=== PATIENT | female | born 1945 | race Caucasian/White ===

== ENCOUNTER 2019-12-31 15:20 | Observation (INO) | payer OTHER, BC ==
[~2019-12-31 15:20] MED LIST: sitaGLIPtin PHOSPHATE 50 MG TABLET PO SCH
[2019-12-31] MEDS ORDERED: DIPHTH,PERTUSS(ACELL),TET 0.5 ML DISP.SYRIN IM ONE ×2 (15:29→15:58)
--- NOTE | 2019-12-31 15:46 | PDOC ---
History of Present Illness - General History Source: Patient Exam Limitations: No Limitations - History of Present Illness Initial Comments: 12/31/19 15:41 74y F with PMH of Afib (warfarin, ppm), HTN, CHF presenting to ED with complaints of fall. Pt was outside had a witnessed mechanical fall and hit her face on a stone step. Pt did not lose consciousness. She has a laceration above the L eyebrow. Denies numbness/tingling, changes in vision, weakness, neck pain , ataxia, nosebleeds, headache. PMD: Parker PMH: see hpi Meds: see med rec Allergies: nkda <Lakeisha Shipley - Last Filed: 12/31/19 19:13> <Lilia Bee - Last Filed: 01/04/20 07:54> - General Chief Complaint: Injury Stated Complaint: FELL Time Seen by Provider: 12/31/19 15:29 Past History <Lakeisha Shipley - Last Filed: 12/31/19 19:13> <Lilia Bee - Last Filed: 01/04/20 07:54> - Past Medical History Allergies/Adverse Reactions: Allergies Allergy/AdvReac Type Severity Reaction Status Date / Time No Known Allergies Allergy Verified 12/31/19 15:27 Home Medications: Ambulatory Orders Aspirin [Aspirin EC] 81 mg PO DAILY 12/31/19 Digoxin [Lanoxin] 125 mcg PO DAILY 12/31/19 Furosemide [Lasix] 40 mg PO DAILY 12/31/19 Isosorbide Mononitrate [Imdur -] 60 mg PO DAILY 12/31/19 Metoprolol Tartrate [Lopressor] 100 mg PO DAILY 12/31/19 Ramipril 5 mg PO DAILY 12/31/19 Simvastatin 20 mg PO HS 12/31/19 Sitagliptin Phos/Metformin HCl [Janumet 50-500 mg Tablet] 1 each PO DAILY Warfarin Na [Coumadin -] 5 mg PO HS 12/31/19 Review of Systems - Review of Systems Constitutional: No: Symptoms Reported HEENTM: No: Symptoms Reported Respiratory: No: Symptoms reported Cardiac (ROS): No: Symptoms Reported ABD/GI: No: Symptoms Reported : No: Symptoms Reported Musculoskeletal: No: Symptoms Reported Integumentary: Yes: See HPI Neurological: No: Symptoms reported <Lakeisha Shipley - Last Filed: 12/31/19 19:13> *Physical Exam - Physical Exam General Appearance: Yes: Nourished, Appropriately Dressed. No: Apparent Distress HEENT: positive: EOMI, NELLIE, TMs Normal, Pharynx Normal Neck: positive: Trachea midline, Supple. negative: Tender midline Respiratory/Chest: positive: Lungs Clear, Normal Breath Sounds. negative: Crackles, Rales, Rhonchi, Stridor, Wheezing Cardiovascular: positive: Regular Rhythm, Regular Rate, S1, S2. negative: Edema , JVD, Murmur Gastrointestinal/Abdominal: positive: Normal Bowel Sounds, Soft Musculoskeletal: negative: CVA Tenderness, Vertebral Tenderness Extremity: positive: Normal Capillary Refill. negative: Pedal Edema, Swelling Integumentary: positive: Normal Color, Dry, Warm, Other (3cm laceration along curvature of frontal bone along L orbit. Abrasion on nasal bridge) Neurologic: positive: crayon sorting machine feeder II-XII NML intact, Fully Oriented, Alert, Normal Mood/ Affect, Normal Response, Motor Strength 5/5 <Lakeisha Shipley - Last Filed: 12/31/19 19:13> - Vital Signs Last Vital Signs Temp Pulse Resp BP Pulse Ox 97.4 F L 70 16 170/93 97 12/31/19 15:25 12/31/19 15:25 12/31/19 15:25 12/31/19 15:25 12/31/19 15:25 <Lilia Bee - Last Filed: 01/04/20 07:54> Procedures - Laceration/Wound Repair Left Upper Face Wound Length: 2.6 to 5.0 cm Wound Explored: clean Wound's Depth, Shape: superficial Irrigated w/ Saline: Yes Betadine Prep: No Anesthesia: 1% Lidocaine Amount of Anesthetic (ccs): 2 Wound Debrided: minimal Wound Repaired With: Sutures Suture Size/Type: 6:0 Number of Sutures: 9 Layer Closure: No <Lilia Bee - Last Filed: 01/04/20 07:54> ED Treatment Course - LABORATORY CBC & Chemistry Diagram: 12/31/19 16:10 12/31/19 17:45 - RADIOLOGY Radiology Studies Ordered: Category Date Time Status CERVICAL SPINE CT W/O CONTR [CT] Stat CT Scan 12/31/19 15:[address] W/O CONTRAST [CT] Stat CT Scan 12/31/19 15:[address] WITHOUT CONTRAST [CT] Stat CT Scan 12/31/19 15:30 Ordered <Lakeisha Shipley - Last Filed: 12/31/19 19:13> - LABORATORY CBC & Chemistry Diagram: 01/01/20 07:45 01/01/20 07:45 - ADDITIONAL ORDERS Additional order review: Laboratory Results 12/31/19 16:10 PT with INR 23.6 H INR 2.14 H 12/31/19 16:10 RBC 4.57 MCV 94.6 MCHC 33.2 RDW 13.8 MPV 9.6 Neutrophils % 82.3 Lymphocytes % 10.1 Monocytes % 4.7 Eosinophils % 2.5 Basophils % 0.4 - Medications Given in the ED: ED Medications Discontinued Medications Generic Name Dose Route Start Last Admin Trade Name Freq PRN Reason Stop Dose Admin Diphtheria/Tetanus/Acell Pertussis 0.5 ml 12/31/19 15:29 12/31/19 16:00 Boostrix - IM 12/31/19 15:30 0.5 ml .ONCE ONE Administration <Lilia Bee - Last Filed: 01/04/20 07:54> Medical Decision Making - Medical Decision Making 12/31/19 15:46 74y F on Warfarin presenting for facial laceration after witnessed mechanical fall without syncope. vitals wnl. will obtain ct of head, facial bones and cspine. boostrix. laceration repair. 12/31/19 19:[address] negative for bleed. hyperdensities seen in frontal lobes concerning for bleed since that is where pt hit her head. called Dr. Anderson, stated it is artifact. pt does not have any neurological deficits. INR therapeutic. will hold warfarin. laceration repaired by medical student Alphonso and Dr. Bee. given head injury, use of warfarin, will admit pt for obs for repeat CT in 12h (0330) accepted by hospitalist. <Lakeisha Shipley - Last Filed: 12/31/19 19:13> Discharge - Discharge Information Problems reviewed: Yes - Admission Yes <Lakeisha Shipley - Last Filed: 12/31/19 19:13> - Admission Yes <Lilia Bee - Last Filed: 01/04/20 07:54> - Discharge Information Clinical Impression/Diagnosis: Fall Qualifiers: Encounter type: initial encounter Qualified Code(s): W19.XXXA - Unspecified fall, initial encounter Laceration of eyebrow, left Qualifiers: Encounter type: initial encounter Qualified Code(s): S01.112A - Laceration without foreign body of left eyelid and periocular area, initial encounter Contusion of face Qualifiers: Encounter type: initial encounter Qualified Code(s): S00.83XA - Contusion of other part of head, initial encounter Condition: Improved Disposition: HOME
--- NOTE | 2019-12-31 15:57 | PDOC ---
Attending Attestation - Resident Resident Name: ViolettaLakeisha - ED Attending Attestation I have performed the following: I have examined & evaluated the patient, The case was reviewed & discussed with the resident, I agree w/resident's findings & plan - HPI HPI: 12/31/19 15:53 74y F with PMH of Afib (warfarin, ppm), HTN, CHF presenting to ED with complaints of mechanical fall. Pt was outside had a witnessed mechanical fall and hit her face on a stone step. No LOC.. She has a laceration above the L eyebrow, +bleeding, and bruising around left eye/cheek. Denies numbness/tingling , changes in vision, hearing, weakness, neck pain, ataxia, nosebleeds, headache. no cp or sob or syncope. last tdap unknown. - Physicial Exam PE: 12/31/19 15:53 Physical exam: General: GCS 15 - NAD HEENT: PERRL, EOMI. Airway intact. +left upper eyebrow 3cm curvilinear and superficial. +left periorbital/cheek ecchymosis, nontender. No e/o ocular involvement, no proptosis no entrapment. Dentition intact. No e/o septal hematoma, nasal bridge stable. +small abrasion to the bridge of nose. Neck: neck supple, no midline C spine tenderness or deformity, ROM intact. No anterior mass or crepitus, trachea midline. right Tm clear, no hemotympanum; congenital abscence of left ear. Resp: Lungs clear bilaterally Chest: no clavicle or chest wall tenderness or crepitus CVS: irreg irreg, 2+ pulses throughout. Abdomen: Abdomen soft, nontender, nondistended. Back: Back nontender, no midline spinal tenderness along cervical/thoracic/ lumbar spine, FROM, no stepoffs. MSK: Pelvis stable, Extremities symmetric, no focal areas of tenderness or deformities, proximal and distally; no pain on axial loading. FROM in all extrem. Neuro: Alert, oriented appropriately. CN II-XII grossly symmetric and intact. no focal neuro deficits. Sensation and strength intact throughout. Gait normal/ stable. Skin: intact, normal color and well perfused. No seatbelt signs at neck, chest or abdomen. - Medical Decision Making 12/31/19 15:56 Vital Signs Temp Pulse Resp BP Pulse Ox 97.4 F L 70 16 170/93 97 12/31/19 15:25 12/31/19 15:25 12/31/19 15:25 12/31/19 15:25 12/31/19 15:25 Trauma ddx: ICH, SDH/ EDH, C spine injury/strain, extremity sprain/fracture, pelvis fracture. MSK contusion, msk spasms. Rib fractures. Clinically doubt Intra abdominal and thoracic injuries/bleed CT head/facial/cervical spine indicated to eval for f/x bleed No evidence of skull fracture, intracranial bleed, dental trauma, cervical, thoracic, or vertebral fracture or subluxation, no suspicion of thoracic, abdominal, pelvic or extremity injury by exam. CT facial without any fractures, no C-spine fracture is noted, multilevel degenerative disc disease is noted CT head prelim neg for acute pathology, atrophic changes noted. had discussed with radiologist, Dr Anderson regarding frontal lobe hyperdensity, but more likely artifact. however, requires repeat CT head in 12-24 hours for risk of delayed bleeding given Coumadin use and head trauma. tdap updated lac repair performed, see note, with 6-0 sutures - copious irrigation with NaCL 1L- 9 sutures placed. wound care instructions, cleaning and minimize infection risk. topical bacitracin, bandaid removal in 5-7 days. admit to hospitalist service for repeat head CT, observation, monitoring s.o to LIN Rawls, admitting to Dr pizano hospitalist service. 12/31/19 17:31 12/31/19 18:25
[2019-12-31 16:26] LABS: BASO % 0.4 % (0-2.0); EOS % 2.5 % (0-4.5); HEMATOCRIT 43.2 % (32.4-45.2); HEMOGLOBIN 14.3 GM/dl (10.7-15.3); LYMPH % 10.1 % (8-40); MCH 31.4 pg (25.7-33.7); MCHC 33.2 g/dl (32.0-36.0); MEAN CELL VOLUME 94.6 fl (80-96); MEAN PLT VOLUME 9.6 fl (7.5-11.1); MONO % 4.7 % (3.8-10.2); NEUT % 82.3 % (42.8-82.8); PLATELET COUNT 183 K/MM3 (134-434); RBC 4.57 M/mm3 (3.60-5.2); RDW 13.8 % (11.6-15.6); WHITE BLOOD COUNT 11.3 K/mm3 (4.0-10.8)
[2019-12-31 16:37] LABS: INR 2.14 (0.82-1.09); PROTHROMBIN TIME (PATIENT) 23.6 SEC (10.2-13.0)
[2019-12-31 18:15] LABS: CALCIUM 9.1 mg/dl (8.5-10); CREATININE 0.8 mg/dl (0.55-1.3); POTASSIUM 4.3 mmol/L (3.5-5.1)
--- NOTE | 2019-12-31 20:58 | HP ---
CHIEF COMPLAINT: PCP: Dr. Canales HISTORY OF PRESENT ILLNESS: 74 year-old female with a PMH significant for HTN, HLD, CHF, afib on coumadin, and Type II NIDDM, who presented to the ED following a witnessed mechanical fall. Patient hit her face on a stone step. No LOC. Suffered a laceration above the left eyebrow. ER course was notable for: (1) BP 170/93 (2) Sutured laceration above left eyebrow Recent Travel: No PAST MEDICAL HISTORY: Hypertension Hyperlipidemia CHF Atrial fibrillation Type II NIDDM PAST SURGICAL HISTORY: c-sections x 3 Cholecystectomy PPM/AICD Valve replacement Social History: retired Smoking: no Alcohol:no Drugs: no Family history: non-contributory Allergies No Known Allergies Allergy (Verified 12/31/19 15:27) HOME MEDICATIONS: Home Medications Medication Instructions Recorded Aspirin [Aspirin EC] 81 mg PO DAILY 12/31/19 Digoxin [Lanoxin] 125 mcg PO DAILY 12/31/19 Furosemide [Lasix] 40 mg PO DAILY 12/31/19 Isosorbide Mononitrate [Imdur -] 60 mg PO DAILY 12/31/19 Metoprolol Tartrate [Lopressor] 100 mg PO DAILY 12/31/19 Ramipril 5 mg PO DAILY 12/31/19 Simvastatin 20 mg PO HS 12/31/19 Sitagliptin Phos/Metformin HCl 1 each PO DAILY 12/31/19 [Janumet 50-500 mg Tablet] Warfarin Na [Coumadin] 5 mg PO HS 12/31/19 REVIEW OF SYSTEMS CONSTITUTIONAL: Absent: fever, chills, diaphoresis, generalized weakness, malaise, loss of appetite, weight change HEENT: Absent: rhinorrhea, nasal congestion, throat pain, throat swelling, difficulty swallowing, mouth swelling, ear pain, eye pain, visual changes CARDIOVASCULAR: Absent: chest pain, syncope, palpitations, irregular heart rate, lightheadedness , peripheral edema RESPIRATORY: Absent: cough, shortness of breath, dyspnea with exertion, orthopnea, wheezing, stridor, hemoptysis GASTROINTESTINAL: Absent: abdominal pain, abdominal distension, nausea, vomiting, diarrhea, constipation, melena, hematochezia GENITOURINARY: Absent: dysuria, frequency, urgency, hesitancy, hematuria, flank pain, genital pain MUSCULOSKELETAL: Absent: myalgia, arthralgia, joint swelling, back pain, neck pain SKIN: mild pain, laceration over eye Absent: rash, itching, pallor HEMATOLOGIC/IMMUNOLOGIC: Absent: easy bleeding, easy bruising, lymphadenopathy, frequent infections ENDOCRINE: Absent: unexplained weight gain, unexplained weight loss, heat intolerance, cold intolerance NEUROLOGIC: Absent: headache, focal weakness or paresthesias, dizziness, unsteady gait, seizure, mental status changes, bladder or bowel incontinence PSYCHIATRIC: Absent: anxiety, depression, suicidal or homicidal ideation, hallucinations. PHYSICAL EXAMINATION Vital Signs - 24 hr 12/31/19 12/31/19 15:25 18:30 Temperature 97.4 F L Pulse Rate 70 Pulse Rate [ 76 Right Radial] Respiratory 16 16 Rate Blood Pressure 170/93 Blood Pressure 170/87 [Right Arm] O2 Sat by Pulse 97 94 L Oximetry (%) GENERAL: Awake, alert, and fully oriented, in no acute distress. HEAD: Laceration above left eyebrow, sutured, no bleeding EYES: Pupils equal, round and reactive to light, extraocular movements intact, sclera anicteric, conjunctiva clear. Left periorbital ecchymosis LUNGS: Breath sounds equal, clear to auscultation bilaterally. No wheezes, and no crackles. No accessory muscle use. HEART: Regular rate and rhythm, normal S1 and S2 ABDOMEN: Soft, nontender, not distended UPPER EXTREMITIES: 2+ pulses, warm, well-perfused. No cyanosis. No clubbing. No peripheral edema. LOWER EXTREMITIES: 2+ pulses, warm, well-perfused. No calf tenderness. No peripheral edema. NEUROLOGICAL: Cranial nerves II-XII intact. Normal speech. Laboratory Results - last 24 hr 12/31/19 12/31/19 12/31/19 16:10 16:10 17:45 WBC 11.3 H RBC 4.57 Hgb 14.3 Hct 43.2 MCV 94.6 MCH 31.4 MCHC 33.2 RDW 13.8 Plt Count 183 MPV 9.6 Absolute Neuts (auto) 9.4 Neutrophils % 82.3 Lymphocytes % 10.1 Monocytes % 4.7 Eosinophils % 2.5 Basophils % 0.4 PT with INR 23.6 H INR 2.14 H Sodium 135 L Potassium 4.3 Chloride 104 Carbon Dioxide 25 Anion Gap 6 L BUN 19.0 H Creatinine 0.8 Est GFR (CKD-EPI)AfAm 83.59 Est GFR (CKD-EPI)NonAf 72.12 Random Glucose 120 H Calcium 9.1 ASSESSMENT/PLAN: 74 year-old female with a PMH significant for HTN, HLD, CHF, afib on coumadin, and Type II NIDDM, who presented to the ED following a witnessed mechanical fall. Patient hit her face on a stone step. No LOC. Suffered a laceration above the left eyebrow. Witnessed mechanical fall Facial trauma --initial CT head negative for acute process, repeat in 12 hours --CT spine, facial bones negative for fracture Atrial fibrillation --hold warfarin pending repeat head CT --INR therapeutic 2.14 Hypertension --initial BP elevated, has stabilized, continue metoprolol, ramipril Hyperlipidemia --copntinue simvastatin CHF, NOS --continue digoxin, lasix, isosorbide Left eyebrow laceration --no active bleeding, no exudate --monitor for s/s of infection FEN Fluids: PO intake adequate Electrolytes: replete as indicated Nutrition: Low sodium, diabetic DVT prophylaxis: INR is therapeutic, hold a/c pending second head CT Dispo: continues to require inpatient care. Full code. Visit type - Emergency Visit Emergency Visit: Yes ED Registration Date: 12/31/19 Care time: The patient presented to the Emergency Department on the above date and was hospitalized for further evaluation of their emergent condition. - New Patient This patient is new to me today: Yes Date on this admission: 01/15/20 - Critical Care Critical Care patient: No
[2019-12-31 21:33] VITALS: BMI 60.5
[2019-12-31] MEDS: INSULIN SLIDING SCALE (NOVOLOG) 1 VIAL SQ SCH (21:37)
[2019-12-31] MEDS ORDERED: ATORVASTATIN CA 10 MG TABLET (FP) PO SCH (22:00)
[2020-01-01 06:30] VITALS: BP 147/63; PULSE 68; TEMP 98.1
[2020-01-01] MEDS: INSULIN SLIDING SCALE (NOVOLOG) 1 VIAL SQ SCH ×2 (06:53→11:00)
[2020-01-01] MEDS ORDERED: metFORMIN HCL 500 MG TABLET (FP) PO SCH (07:00)
[2020-01-01 08:47] LABS: ALBUMIN 3.6 g/dl (3.4-5.0); BILIRUBIN,TOTAL 1.2 mg/dl (0.2-1); CALCIUM 9.2 mg/dl (8.5-10); CREATININE 0.7 mg/dl (0.55-1.3); INR 2.21 (0.82-1.09); MAGNESIUM 1.5 mg/dL (1.8-2.4); POTASSIUM 3.8 mmol/L (3.5-5.1); PROTHROMBIN TIME (PATIENT) 24.4 SEC (10.2-13.0); TOT PROT 6.1 g/dl (6.4-8.2)
[2020-01-01 09:00] LABS: BASO % 0.4 % (0-2.0); EOS % 3.4 % (0-4.5); HEMATOCRIT 39.3 % (32.4-45.2); HEMOGLOBIN 12.9 GM/dl (10.7-15.3); LYMPH % 13.3 % (8-40); MCH 30.9 pg (25.7-33.7); MCHC 32.8 g/dl (32.0-36.0); MEAN CELL VOLUME 94.2 fl (80-96); MEAN PLT VOLUME 10.4 fl (7.5-11.1); MONO % 5.5 % (3.8-10.2); NEUT % 77.4 % (42.8-82.8); PLATELET COUNT 160 K/MM3 (134-434); RBC 4.18 M/mm3 (3.60-5.2); RDW 13.6 % (11.6-15.6); WHITE BLOOD COUNT 8.7 K/mm3 (4.0-10.8)
[2020-01-01] MEDS ORDERED: MAGNESIUM SULF 50% (8.12 MEQ/2 ML-1 GM VIAL) IVPB ONE (09:57)
--- NOTE | 2020-01-01 09:59 | DS ---
Physical Exam: SUBJECTIVE: Patient seen and examined OBJECTIVE: Vital Signs Period Temp Pulse Resp BP Sys/Mays Pulse Ox Last 24 Hr 97.4 F-98.1 F 68-76 16-18 142-170/63-93 94-97 PHYSICAL EXAM GENERAL: Awake, alert, and fully oriented, in no acute distress. HEAD: Laceration above left eyebrow, sutured, no bleeding EYES: Pupils equal, round and reactive to light, extraocular movements intact, sclera anicteric, conjunctiva clear. Left periorbital ecchymosis LUNGS: Breath sounds equal, clear to auscultation bilaterally. No wheezes, and no crackles. No accessory muscle use. HEART: Regular rate and rhythm, normal S1 and S2 ABDOMEN: Soft, nontender, not distended UPPER EXTREMITIES: 2+ pulses, warm, well-perfused. No cyanosis. No clubbing. No peripheral edema. LOWER EXTREMITIES: 2+ pulses, warm, well-perfused. No calf tenderness. No peripheral edema. NEUROLOGICAL: Cranial nerves II-XII intact. Normal speech. LABS Laboratory Results - last 24 hr 12/31/19 12/31/19 12/31/19 16:10 16:10 17:45 WBC 11.3 H RBC 4.57 Hgb 14.3 Hct 43.2 MCV 94.6 MCH 31.4 MCHC 33.2 RDW 13.8 Plt Count 183 MPV 9.6 Absolute Neuts (auto) 9.4 Neutrophils % 82.3 Lymphocytes % 10.1 Monocytes % 4.7 Eosinophils % 2.5 Basophils % 0.4 PT with INR 23.6 H INR 2.14 H Sodium 135 L Potassium 4.3 Chloride 104 Carbon Dioxide 25 Anion Gap 6 L BUN 19.0 H Creatinine 0.8 Est GFR (CKD-EPI)AfAm 83.59 Est GFR (CKD-EPI)NonAf 72.12 POC Glucometer Random Glucose 120 H Calcium 9.1 Magnesium Total Bilirubin AST ALT Alkaline Phosphatase Total Protein Albumin 12/31/19 01/01/20 01/01/20 21:26 06:44 07:45 WBC 8.7 RBC 4.18 Hgb 12.9 Hct 39.3 MCV 94.2 MCH 30.9 MCHC 32.8 RDW 13.6 Plt Count 160 MPV 10.4 Absolute Neuts (auto) 6.7 Neutrophils % 77.4 Lymphocytes % 13.3 Monocytes % 5.5 Eosinophils % 3.4 Basophils % 0.4 PT with INR INR Sodium Potassium Chloride Carbon Dioxide Anion Gap BUN Creatinine Est GFR (CKD-EPI)AfAm Est GFR (CKD-EPI)NonAf POC Glucometer 137 114 Random Glucose Calcium Magnesium Total Bilirubin AST ALT Alkaline Phosphatase Total Protein Albumin 01/01/20 01/01/20 07:45 07:45 WBC RBC Hgb Hct MCV MCH MCHC RDW Plt Count MPV Absolute Neuts (auto) Neutrophils % Lymphocytes % Monocytes % Eosinophils % Basophils % PT with INR 24.4 H INR 2.21 H Sodium 137 Potassium 3.8 Chloride 103 Carbon Dioxide 26 Anion Gap 8 BUN 16.0 Creatinine 0.7 Est GFR (CKD-EPI)AfAm 98.23 Est GFR (CKD-EPI)NonAf 84.75 POC Glucometer Random Glucose 122 H Calcium 9.2 Magnesium 1.5 L Total Bilirubin 1.2 H AST 21 ALT 14 Alkaline Phosphatase 76 Total Protein 6.1 L Albumin 3.6 HOSPITAL COURSE: Date of Admission:12/31/19 Date of Discharge: 01/01/20 Pre hospital course 74 year-old female with a PMH significant for HTN, HLD, CHF, afib on coumadin, and Type II NIDDM, who presented to the ED following a witnessed mechanical fall. Patient hit her face on a stone step. No LOC. Suffered a laceration above the left eyebrow. ER course (1) BP 170/93 (2) Sutured laceration above left eyebrow Subsequent hospital course Witnessed mechanical fall Facial trauma --CT head negative x 2 --CT spine, facial bones negative for fracture Atrial fibrillation --resumed warfarin, INR 2.14 on date of discharge Hypertension --initial BP elevated, then stabilized, continued metoprolol, ramipril Hyperlipidemia --continued simvastatin CHF, NOS --continued digoxin, lasix, isosorbide --euvolemic Left eyebrow laceration --no active bleeding, no exudate --outpatient followup for suture removal Minutes to complete discharge: 35 Discharge Summary Problems reviewed: Yes Reason For Visit: LACERATION/INJURY OF HEAD/FALL Current Active Problems Contusion of face (Acute) Fall (Acute) Laceration of eyebrow, left (Acute) Condition: Improved - Instructions Diet, Activity, Other Instructions: Resume taking your coumadin at your normal dose and continue to have your INR checked regularly. Referrals: Tara Canales MD [Primary Care Provider] - Disposition: HOME - Home Medications Comprehensive Discharge Medication List: Ambulatory Orders Aspirin [Aspirin EC] 81 mg PO DAILY 12/31/19 Digoxin [Lanoxin] 125 mcg PO DAILY 12/31/19 Furosemide [Lasix] 40 mg PO DAILY 12/31/19 Isosorbide Mononitrate [Imdur -] 60 mg PO DAILY 12/31/19 Metoprolol Tartrate [Lopressor] 100 mg PO DAILY 12/31/19 Ramipril 5 mg PO DAILY 12/31/19 Simvastatin 20 mg PO HS 12/31/19 Sitagliptin Phos/Metformin HCl [Janumet 50-500 mg Tablet] 1 each PO DAILY Warfarin Na [Coumadin] 5 mg PO HS 12/31/19 This patient is new to me today: No Emergency Visit: Yes ED Registration Date: 12/31/19 Care time: The patient presented to the Emergency Department on the above date and was hospitalized for further evaluation of their emergent condition. Critical Care patient: No - Discharge Referral Referred to [facility] Med P.C.: No
[2020-01-01] MEDS ORDERED: RAMIPRIL 5 MG CAPSULE (FP) PO SCH (10:00)
[2020-01-01] MEDS ORDERED: METOPROLOL TARTRATE 50 MG TABLET (FP) PO SCH (10:00)
[2020-01-01] MEDS ORDERED: FUROSEMIDE 40 MG TABLET (FP) PO SCH (10:00)
[2020-01-01] MEDS ORDERED: ISOSORBIDE MONONITRATE 60 MG TAB.SR.24H (FP) PO SCH (10:00)
[2020-01-01] MEDS ORDERED: DIGOXIN 0.125 MG TABLET (FP) PO SCH (10:00)
--- NOTE | 2020-01-01 14:35 | EKG ---
Test Reason : Blood Pressure : / mmHG Vent. Rate : 081 BPM Atrial Rate : 070 BPM P-R Int : 000 ms QRS Dur : 200 ms QT Int : 450 ms P-R-T Axes : 000 -68 106 degrees QTc Int : 522 ms Ventricular-paced rhythm WITH OCCASIONAL and consecutive PREMATURE VENTRICULAR COMPLEXES ABNORMAL ECG Confirmed by MD EDITH, TAMI ([id number]) on 01/01/2020 2:35:32 PM Referred By: MD NEUMANN Confirmed By:TAMI SHARMA MD
== END 2020-01-01 14:30 | disposition home or self-care (01) ==
LOC: FER 15:20 → FM/S 16:46 → INTOOBSV 16:46
PROVIDERS: ADMIT Internal Medicine; ATTEND Nurse Practitioner Acute Care
PROC: 0HQ1XZZ Repair Face Skin, External Approach (ICD-10-PCS; principal; 2019-12-31)
PROC: 3E033GC Introduction of Other Therapeutic Substance into Peripheral Vein, Percutaneous Approach (ICD-10-PCS; 2019-12-31)
PROC: 3E0234Z Introduction of Serum, Toxoid and Vaccine into Muscle, Percutaneous Approach (ICD-10-PCS; 2019-12-31)
DX: Z04.3 Encounter for examination and observation following other accident (principal); S01.112A Laceration without foreign body of left eyelid and periocular area, initial encounter; S00.31XA Abrasion of nose, initial encounter; W01.198A Fall on same level from slipping, tripping and stumbling with subsequent striking against other object, initial encounter; Y93.01 Activity, walking, marching and hiking; Y92.89 Other specified places as the place of occurrence of the external cause; I48.91 Unspecified atrial fibrillation; I11.0 Hypertensive heart disease with heart failure; I50.9 Heart failure, unspecified; Z79.82 Long term (current) use of aspirin; Z95.0 Presence of cardiac pacemaker; Z79.01 Long term (current) use of anticoagulants; E78.5 Hyperlipidemia, unspecified; E11.9 Type 2 diabetes mellitus without complications
CPT/HCPCS: 12013; 36415; 70450-TC; 70486-TC; 71045-TC-FY; 72125-TC; 80048; 80053; 82962; 83735; 85025; 85610; 90471; 90715; 93005; 96374; 99285-25; G0378

== ENCOUNTER 2020-01-07 08:54 | Emergency (ER) | payer OTHER, BC ==
[2020-01-07 09:00] VITALS: BP 159/99; PULSE 74; TEMP 97.6; BMI 26.2
--- NOTE | 2020-01-07 09:28 | PDOC ---
Suture Removal/Wound Check HPI - History of Present Illness Chief Complaint: Suture/Staple Removal(Here) Stated Complaint: SUTURE REMOVAL Time Seen by Provider: 01/07/20 09:20 History Source: Yes: Patient Exam Limitations: Yes: No Limitations Treated at: [facility] ED Date of Last ED visit: 12/31/19 - Previous ED Treatment Type of procedure performed on last visit: Yes: Laceration Repair Tetanus Immunization: Yes: Up to Date Antibiotics Prescribed: No Past History - Travel Traveled outside of the country in the last 30 days: No Close contact w/someone who was outside of country & ill: No - Past Medical History Allergies/Adverse Reactions: Allergies Allergy/AdvReac Type Severity Reaction Status Date / Time No Known Allergies Allergy Verified 12/31/19 15:27 Home Medications: Ambulatory Orders Aspirin [Aspirin EC] 81 mg PO DAILY 12/31/19 Digoxin [Lanoxin] 125 mcg PO DAILY 12/31/19 Furosemide [Lasix] 40 mg PO DAILY 12/31/19 Isosorbide Mononitrate [Imdur -] 60 mg PO DAILY 12/31/19 Metoprolol Tartrate [Lopressor] 100 mg PO DAILY 12/31/19 Ramipril 5 mg PO DAILY 12/31/19 Simvastatin 20 mg PO HS 12/31/19 Sitagliptin Phos/Metformin HCl [Janumet 50-500 mg Tablet] 1 each PO DAILY Warfarin Na [Coumadin -] 5 mg PO HS 12/31/19 Cardiac Disorders: Yes (A-FIB, LEAKING VALVE, PPM/DEFIBRILLATOR) COPD: No Diabetes: Yes HTN: Yes Hypercholesterolemia: Yes - Surgical History Cardiac Surgery: Yes (VALVE REPLACEMENT AND VALVE REPAIR) Cholecystectomy: Yes - Psycho Social/Smoking Cessation Hx Smoking History: Never smoked Information on smoking cessation initiated: No Hx Alcohol Use: No Drug/Substance Use Hx: No Suture Removal/Wound Check PE - Physical Exam Laceration/Wound Check Symptoms: reports: None Current Severity Level: None Maximum Severity Level: None Pain Localization: None Location of Laceration/Wound: left: Face (Just above lateral left eyebrow) Pain Radiation: None *Review of Systems - Review of Systems Able to Perform ROS?: Yes Constitutional: No: Chills, Fever, Weakness HEENTM: No: Eye Pain, Recent change in vision, Double Vision Respiratory: No: Cough, Shortness of Breath Cardiac (ROS): No: Chest Pain, Chest Tightness ABD/GI: No: Nausea, Vomiting Musculoskeletal: No: Muscle Pain, Muscle Weakness Integumentary: No: Pruritus, Rash Neurological: No: Headache, Numbness, Tingling All Other Systems: Reviewed and Negative *Physical Exam - Vital Signs Last Vital Signs Temp Pulse Resp BP Pulse Ox 97.6 F 74 16 159/99 96 01/07/20 08:56 01/07/20 08:56 01/07/20 08:56 01/07/20 08:56 01/07/20 08:56 - Physical Exam 01/07/20 09:24 Vitals reviewed, AFVSS GEN: Well appearing, elderly woman, appears stated age, NAD, comfortable. AAOx3. HEENT: Left face laceration, well healed, [address], EOMI, PERRL. Sclera anicteric, noninjected. Moist mucous membranes. Normal voice. CV: RRR, S1/S2, no murmurs / rubs / gallops appreciated. LUNG: CTAB, normal work of breathing. No wheezes, rales, rhonchi. No cough. Speaking full sentences. GI: Soft, NTND, +BS, no guarding, no rebound. No masses. Neg CVAT b/l. EXTREMITIES: 2+ distal pulses. No LE edema. No obvious deformities of all extremities. SKIN: Warm, dry, no rashes appreciated, non-jaundiced. PSYCH: Normal mood and affect. Cooperative and appropriate. NEURO: CN grossly intact. Moving all extremities well. Normal strength and sensation grossly Medical Decision Making - Medical Decision Making 01/07/20 09:26 74yo F, seen here 12/31/2019 for wound repair s/p fall onto stone step. Wound healing appropriately, no systemic symptoms. Tetanus up to date. Here for suture removal. - 9 sutures removed with 11 blade - Steri-strips x3 placed Dispo: Home Discharge - Discharge Information Problems reviewed: Yes Clinical Impression/Diagnosis: Encounter for removal of sutures Condition: Stable Disposition: HOME - Admission No - Follow up/Referral - Patient Discharge Instructions Patient Printed Discharge Instructions: DI for Suture Removal Additional Instructions: Thank you for coming in. Continue your home medications as directed. Follow up with your primary care doctor as scheduled. Return with any new or concerning symptoms. - Post Discharge Activity
--- NOTE | 2020-01-07 09:56 | PDOC ---
Attending Attestation - Resident Resident Name: Jone Brower - ED Attending Attestation I have performed the following: I have examined & evaluated the patient, The case was reviewed & discussed with the resident, I agree w/resident's findings & plan, Exceptions are as noted - HPI HPI: 74 yo F s/p wound repair on 12/31 presents for suture removal. She initially presented s/p fall onto stone step, striking her forehead. Tdap up to date. - Physicial Exam PE: GENERAL: Awake, alert, and fully oriented, in no acute distress HEAD: +B/L healing ecchymosis to inferior orbital area. +Sutures to L superior orbital rim, no erythema, no drainage. NEUROLOGICAL: Cranial nerves II through XII grossly intact. Normal speech, normal gait. Motor and sensation intact SKIN: Warm, dry, normal turgor, no rashes or lesions noted. - Medical Decision Making Pt presents for suture removal. Nine sutures removed without incident. Steri- strips placed.
== END 2020-01-07 09:38 | disposition home or self-care (01) ==
LOC: FER 08:54
DX: Z48.02 Encounter for removal of sutures (principal); I10 Essential (primary) hypertension; E78.00 Pure hypercholesterolemia, unspecified; E11.9 Type 2 diabetes mellitus without complications; Z79.01 Long term (current) use of anticoagulants; Z79.82 Long term (current) use of aspirin; Z79.84 Long term (current) use of oral hypoglycemic drugs; I48.91 Unspecified atrial fibrillation; Z95.2 Presence of prosthetic heart valve
CPT/HCPCS: 99281-25

== ENCOUNTER 2020-08-05 18:39 | Emergency (ER) | payer OTHER, BC ==
[2020-08-05 18:45] VITALS: BMI 23.8
[2020-08-05 19:12] VITALS: BP 159/89; PULSE 79; TEMP 98.1
--- NOTE | 2020-08-05 19:35 | PDOC ---
History of Present Illness - General Chief Complaint: Pain, Acute Stated Complaint: LEFT KNEE PAIN Time Seen by Provider: 08/05/20 19:32 History Source: Patient Exam Limitations: No Limitations - History of Present Illness Initial Comments: 08/05/20 19:33 75YOF with h/o HTN, HLD, CHF, afib on coumadin, and Type II NIDDM, who p/w GLF onto her left knee with subsequent knee pain, also with a "pop" she felt at the time of the fall, but without any preceding symptoms, head hit, LOC, dizziness, or any other symptoms prior to or after the incident. She was not on the ground for a significant amount of time. Has been able to walk since then with minimal exacerbation of the pain. At the time of my examination she states the pain is much improved. Past History - Medical History Allergies/Adverse Reactions: Allergies Allergy/AdvReac Type Severity Reaction Status Date / Time No Known Allergies Allergy Verified 12/31/19 15:27 Home Medications: Ambulatory Orders Aspirin [Aspirin EC] 81 mg PO DAILY 12/31/19 Digoxin [Lanoxin] 125 mcg PO DAILY 12/31/19 Furosemide [Lasix] 40 mg PO DAILY 12/31/19 Isosorbide Mononitrate [Imdur -] 60 mg PO DAILY 12/31/19 Metoprolol Tartrate [Lopressor] 100 mg PO DAILY 12/31/19 Ramipril 5 mg PO DAILY 12/31/19 Simvastatin 20 mg PO HS 12/31/19 Sitagliptin Phos/Metformin HCl [Janumet 50-500 mg Tablet] 1 each PO DAILY 12/31/19 Warfarin Na [Coumadin -] 5 mg PO HS 12/31/19 Cardiac Disorders: Yes (A-FIB, LEAKING VALVE, PPM/DEFIBRILLATOR) COPD: No Diabetes: Yes HTN: Yes Hypercholesterolemia: Yes - Surgical History Cardiac Surgery: Yes (VALVE REPLACEMENT AND VALVE REPAIR) Cholecystectomy: Yes - Reproductive History Is Patient Now?: No - Psycho-Social/Smoking History Smoking History: Never smoked - Substance Abuse Hx (Audit-C & DAST Scrn) How often the patient has a drink containing alcohol: Never Score: In Men: 4 or > Positive; In Women: 3 or > Positive: 0 Screen Result (Pos requires Nsg. Audit-10AR): Negative In the last yr the pt used illegal drug/Rx for NonMed reason: No Score: Yes response is considered Positive: 0 Screen Result (Positive result requires Nsg. DAST-10): Negative Review of Systems - Review of Systems Able to Perform ROS?: Yes Comments:: 08/06/20 00:45 GEN: no fever, chills, generalized weakness, or malaise HEENT: no ear pain, eye pain, throat pain or swelling, nosebleed, vision change, or loose teeth SKIN: no cuts, abrasions, or bruises CV: no chest pain, palpitations, or LOC RESP: no cough or SOB GI: no abdominal pain, nausea, vomiting, or black/bloody stool : no hematuria or flank pain/bruising MSK: left knee pain, otherwise no muscle weakness, muscle pain, joint pain, or joint swelling NECK/BACK: no neck pain, back pain, or trauma reported NEURO: no headache, seizure, numbness, tingling, focal weakness, or incontinence PSYCH: no suicidality, homicidality, or substance use *Physical Exam - Vital Signs Last Vital Signs Temp Pulse Resp BP Pulse Ox 98.1 F 79 18 159/89 98 08/05/20 18:40 08/05/20 18:40 08/05/20 18:40 08/05/20 18:40 08/05/20 18:40 - Physical Exam 08/06/20 00:45 GENERAL: very well-appearing, A/Ox4, no distress, answers questions appropriately, pleasant, daughter at bedside HEENT: PERRLA, EOMI, moist mucous membranes NECK/BACK: no midline ttp, no spinal step-off or deformity, no hematoma, full ROM, neck supple CARDIOVASCULAR: regular rate/rhythm, no MGR, strong peripheral pulses, capillary refill <2 seconds, extremities wwp, no edema LUNGS/RESPIRATORY: no respiratory distress, CTAB GI/ABDOMEN: symmetric [id number], normoactive BS, soft, no ttp, no midline pulsatile masses : no CVA tenderness MSK/EXTREMITIES: left knee without effusion, abrasion, laceration, deformity, or tenderness to jointline or to ROM, no instability to varus/valgus stress, negative anterior and posterior drawers, negative Apley grind, no muscle atrophy, no acute deformity SKIN: warm and dry, no pallor, no jaundice, no rash, no pathologic-appearing bruising, no skin breakdown, no cuts, no lesions NEUROLOGICAL: GCS 15, CN II-XII grossly intact, 5/5 strength proximally and distally, no facial droop ED Treatment Course - RADIOLOGY Radiology Studies Ordered: Category Date Time Status KNEE 3 POS-LEFT [RAD] Stat Radiology 08/05/20 19:14 Ordered Medical Decision Making - Medical Decision Making 08/06/20 00:47 75YOF with report of left knee injury from GLF with "pop" felt, but now without pain or tenderness or other findings. Initial Vital Signs Temp Pulse Resp BP Pulse Ox 98.1 F 79 18 159/89 98 08/05/20 18:40 08/05/20 18:40 08/05/20 18:40 08/05/20 18:40 08/05/20 18:40 Most likely strain/sprain, possible knee effusion, possible hemarthrosis given AC use, unlikely fracture or dislocation, unlikely any clinically significant ligamentous or tendon injury. Provider Orders Category Date Time Status KNEE 3 POS-LEFT [RAD] Stat Radiology 08/05/20 19:14 Taken Knee XR shows no fracture or dislocation, there is calcification of patellar and quads tendons expected with age. The patient is appropriate for f/u with PCP and ortho if her symptoms persist. She and her daughter are counseled on this. On re-exam the patient has no pain on ROM or ambulation and no ttp. She is instructed to be WBAT and use RICE therapy. Return precautions discussed. Discharge - Discharge Information Problems reviewed: Yes Clinical Impression/Diagnosis: Left knee injury Qualifiers: Encounter type: initial encounter Qualified Code(s): S89.92XA - Unspecified injury of left lower leg, initial encounter Condition: Stable Disposition: HOME - Admission No - Follow up/Referral Referrals: Bryant Timmons DO [Staff Physician] - Sidney Villagomez DO [Staff Physician] - Danny Ann MD [Staff Physician] - Derrick Barber MD [Staff Physician] - - Patient Discharge Instructions Additional Instructions: You were seen in the ER for a knee injury. We did an exam and X-rays, which showed no new concerning findings or fractures. After our assessment, we do not believe you are having a medical emergency at this time, and we believe you are safe to go home. You can bear weight on the ankle/foot as tolerated (as your pain allows). Use RICE therapy (rest, ice, compression, elevation) and take Tylenol and Motrin for the pain. We are giving you referral information for our orthopedist, so if you have continued symptoms in 1-2 weeks, please feel free to follow up with them. Please also follow up with your primary care provider in 1- 3 days. Call their clinic as soon as possible, tell them you were seen in the ER, and tell them you need an appointment. If you have any new or worsening symptoms, especially worsening or severe pain of the thigh, knee, calf, or ankle/foot, or any numbness, tingling, weakness, redness, or paleness of the area, please come back to the ER at any time (24 hours a day). - Post Discharge Activity
== END 2020-08-05 20:12 | disposition home or self-care (01) ==
LOC: FER 18:39
DX: S89.92XA Unspecified injury of left lower leg, initial encounter (principal)
CPT/HCPCS: 73562-TC-LT-FY; 99283-25

== ENCOUNTER 2022-07-27 12:15 | Emergency (ER) | payer OTHER, BC ==
[2022-07-27 12:52] VITALS: RESP 20; BMI 26.2
[2022-07-27 14:17] LABS: EOS % 2.6 % (0-4.5); HEMATOCRIT 36.5 % (32.4-45.2); HEMOGLOBIN 12.4 GM/dL (10.7-15.3); LYMPH % 6.9 % (8-40); MCH 32.3 pg (25.7-33.7); MCHC 33.9 g/dl (32.0-36.0); MEAN CELL VOLUME 95.1 fl (80-96); MEAN PLT VOLUME 9.3 fl (7.5-11.1); MONO % 7.1 % (3.8-10.2); NEUT % 82.4 % (42.8-82.8); PLATELET COUNT 176 10^3/uL (134-434); RBC 3.84 M/mm3 (3.60-5.2); RDW 16.6 % (11.6-15.6); WHITE BLOOD COUNT 7.9 K/mm3 (4.0-10.0)
[2022-07-27 14:38] LABS: ALBUMIN 3.6 g/dl (3.4-5.0); BLOOD UREA NITROGEN 20.5 mg/dL (7-18)
[2022-07-27 14:41] LABS: CREATININE 0.8 mg/dL (0.55-1.3)
[2022-07-27 14:42] LABS: BILIRUBIN,TOTAL 1.6 mg/dL (0.2-1); TOT PROT 7.2 g/dl (6.4-8.2)
[2022-07-27] MEDS ORDERED: OXYMETAZOLINE 0.05% NASAL SOLUTION 15 ML BOTTLE NS ONE (15:29)
[2022-07-27 16:31] LABS: PROTHROMBIN TIME (PATIENT) 46.6 SEC (9.7-13.0)
[2022-07-27 16:34] LABS: ACTIVATED PTT 45.3 SECONDS (25.2-36.5)
[2022-07-27] MEDS ORDERED: LIDOCAINE HCL 2% JELLY 10 ML CARTRIDGE UR ONE (16:51)
[2022-07-27] MEDS ORDERED: LIDOCAINE HCL 2% JELLY 10 ML CARTRIDGE ONE (16:58)
[2022-07-27] MEDS ORDERED: AMPICILLIN NA/SULBACTAM NA 1.5 GM in SODIUM CHLORIDE 100 ML IVPB ONE (17:27)
[2022-07-27 19:20] VITALS: BP 148/61; PULSE 71
[2022-07-27 19:58] VITALS: TEMP 97.8
== END 2022-07-27 20:07 | disposition short-term general hospital (02) ==
LOC: JER 12:15
PROC: 0HQ1XZZ Repair Face Skin, External Approach (ICD-10-PCS; principal; 2022-07-27)
PROC: 3E03329 Introduction of Other Anti-infective into Peripheral Vein, Percutaneous Approach (ICD-10-PCS; 2022-07-27)
DX: S09.90XA Unspecified injury of head, initial encounter (principal); S02.2XXA Fracture of nasal bones, initial encounter for closed fracture; S00.83XA Contusion of other part of head, initial encounter; S01.81XA Laceration without foreign body of other part of head, initial encounter
CPT/HCPCS: 36415; 70450-TC; 70486-TC; 71045-TC-FY; 72125-TC; 72170-TC-FY; 80053; 85025; 85610; 85730; 99285-25; C9803-CS; U0003; U0005